=== PATIENT | male | born 1955 | race Caucasian/White ===

== ENCOUNTER 2017-06-24 14:04 | Inpatient (IN) | payer SELFPAY ==
[~2017-06-24] VITALS: Ht 152.4 cm; Wt 61.7 kg
[2017-06-24] MEDS ORDERED: SODIUM CHLORIDE 0.9% 1,000 ML IV ONE ×2 (15:01→16:02)
[2017-06-24 15:45] LABS: BASOPHILS % 0.3 % (0.0-2.0); EOSINOPHILS % 1.5 % (0.0-5.0); HEMATOCRIT. 44.3 % (42.0-52.0); HEMOGLOBIN. 14.8 g/dL (14.0-18.0); LYMPHOCYTES % 25.8 % (20.0-50.0); MEAN CORPUSCULAR HEMOGLOBIN 30.4 pg (28.0-32.0); MEAN CORPUSCULAR VOLUME 90.9 fL (80.0-94.0); MEAN PLATELET VOLUME 7.5 fl (7.4-10.4); MONOCYTES % 8.9 % (2.0-8.0); NEUTROPHILS % 63.5 % (40.0-76.0); PLATELET 242 x1000/uL (130-400); RED BLOOD CELL COUNT 4.87 mill/uL (4.7-6.1)
[2017-06-24 15:50] LABS: PROTHROMBIN TIME 10.7 sec (9.4-11.6)
[2017-06-24 15:54] LABS: CHLORIDE 104 mEq/L (98-107)
[2017-06-24] MEDS ORDERED: PIPERACILLIN/TAZ 3.375G PREMIX 50 ML IV ONE (16:45)
[2017-06-24] MEDS ORDERED: VANCOMYCIN 1 G PREMIX 200 ML IV ONE (16:45)
[2017-06-24 17:33] LABS: CLARITY URINE CLEAR (CLEAR); COLOR URINE YELLOW (YELLOW); KETONES URINE NEGATIVE (NEGATIVE); LEUKOCYTE ESTERASE URINE NEGATIVE (NEGATIVE); NITRITE URINE NEGATIVE (NEGATIVE); OCCULT BLOOD URINE NEGATIVE (NEGATIVE); PROTEIN URINE NEGATIVE (NEGATIVE); SPECIFIC GRAVITY URINE 1.019 (1.005-1.030); UROBILINOGEN URINE 0.2 E.U./dL (0.2-1.0)
[2017-06-24 23:10] LABS: CREATINE KINASE MB FRACTION 3.8 ng/mL (0.5-3.6); TROPONIN I 0.03 ng/mL (0.00-0.04)
[2017-06-24] MEDS ORDERED: NITROGLYCERIN 0.4MG TABLET SL SL PRN (23:48)
[2017-06-24] MEDS ORDERED: KETOROLAC 15MG/ML VIAL IV PRN (23:51)
[2017-06-24] MEDS ORDERED: ONDANSETRON HCL 4MG/2ML VIAL IV PRN (23:51)
[2017-06-24] MEDS ORDERED: ACETAMINOPHEN 325MG TABLET PO PRN (23:52)
[2017-06-24] MEDS ORDERED: MAGNESIUM/ALUMINUM HYDROXIDE/SIMETHICONE 30ML UDC PO PRN (23:52)
[2017-06-24] MEDS ORDERED: DIPHENHYDRAMINE 50MG/ML VIAL IV PRN (23:52)
[2017-06-24] MEDS ORDERED: CLONIDINE 0.1MG TABLET PO PRN (23:52)
[2017-06-24] MEDS ORDERED: DOCUSATE SODIUM 100MG CAPSULE PO PRN (23:53)
[2017-06-24] MEDS ORDERED: IPRATROPIUM/ALBUTEROL 0.5-3(2.5)MG/3ML NEB INH PRN (23:53)
[2017-06-24] MEDS ORDERED: GUAIFENESIN 200MG/10ML SUGAR FREE UDC PO PRN (23:58)
[2017-06-25 03:10] VITALS: BP 166/88
[2017-06-25 03:15] VITALS: BP 144/88
[2017-06-25] MEDS ORDERED: NA PHOS,M-B/NA PHOS,DI-BA ENEMA 118ML PR PRN (03:26)
[2017-06-25] MEDS ORDERED: ZOLPIDEM TARTRATE 5MG TABLET PO PRN (03:26)
[2017-06-25] MEDS ORDERED: CEFTRIAXONE 1 G PREMIX 50 ML IV SCH (05:00)
[2017-06-25] MEDS ORDERED: LEVOFLOXACIN 500MG PREMIX 100 ML IV SCH (06:00)
[2017-06-25 07:51] LABS: CREATINE KINASE 78 IU/L (39-308); CREATINE KINASE MB FRACTION 2.7 ng/mL (0.5-3.6); TROPONIN I < 0.02 ng/mL (0.00-0.04)
[2017-06-25 08:00] VITALS: BP_SYST 113; BP_SYST 132; BP_DIAS 63; BP_DIAS 88
[2017-06-25] MEDS: ASPIRIN 325MG EC TABLET PO SCH ×2 (08:26→08:39)
[2017-06-25] MEDS: ENOXAPARIN 40MG/0.4ML SYR SUBCUT SCH ×2 (08:27→08:39)
[2017-06-25] MEDS ORDERED: FAMOTIDINE 20MG/2ML VIAL IV SCH (09:00)
[2017-06-25] MEDS ORDERED: METOPROLOL TARTRATE 25MG TABLET PO SCH (09:00)
[2017-06-25 12:00] VITALS: BP 117/62
[2017-06-25 13:11] VITALS: BP 117/62
== END 2017-06-25 15:15 | disposition home or self-care (01) | DRG 52 ==
LOC: ER 14:04 → EDBEDREQ 15:26 → 8WST 17:41 → EDBEDREQSVC 17:42 → EDBEDREQTM 17:42 → EDBEDREQ 17:42 → ENRESERV 06-25 01:25
PROVIDERS: ADMIT Internal Medicine; ATTEND Internal Medicine
DX: G93.40 Encephalopathy, unspecified (principal); E44.1 Mild protein-calorie malnutrition; Z59.0 Homelessness; Z68.26 Body mass index [BMI] 26.0-26.9, adult
CPT/HCPCS: 36415; 70450; 71045; 80053; 80061; 81003; 82550; 82553; 82962; 83036; 83605; 84484; 85025; 85610; 87040; 87086; 93005; 93970; 96361; 96365; 96375; 99291; G0482; J0696; J1650; J1956; J2543; J3370; J3490; J7030; J7050